=== PATIENT | male | born 2000 | race Caucasian/White ===

== ENCOUNTER 2019-04-14 07:23 | Emergency (ER) | payer SELFPAY ==
[~2019-04-14] VITALS: Ht 185.4 cm; Wt 79.4 kg
[2019-04-14 07:27] VITALS: BP 150/79
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
--- NOTE | 2019-04-14 07:50 | NUR ---
PATIENT [facility] DEPT. PATIENT EXAMINED BY DR. KUHN. PATIENT MEDICALLY CLEARED AND RELEASED IN CUSTODY IN STABLE CONDITION. ORIGINAL PRE-BOOK FORM GIVEN TO OFFICER MADONNA. DISCHARGE INSTRUCTIONS GIVEN TO OFFICER MADONNA.
[2019-04-14 07:52] VITALS: BP 150/79
== END 2019-04-14 07:50 | disposition home or self-care (01) ==
LOC: MED 07:23
DX: Z00.00 Encounter for general adult medical examination without abnormal findings (principal); V89.2XXA Person injured in unspecified motor-vehicle accident, traffic, initial encounter; Y93.89 Activity, other specified; Y92.410 Unspecified street and highway as the place of occurrence of the external cause; Y99.8 Other external cause status
CPT/HCPCS: 99283